=== PATIENT | female | born 1955 | race Caucasian/White ===

== ENCOUNTER 2025-01-11 02:59 | Inpatient (IN) | payer MEDICARE, OTHER, SELFPAY ==
--- NOTE | 2025-01-10 19:53 | EDRN ---
Called for pt, no answer.
[2025-01-10 19:54] VITALS: BP 95/66
[2025-01-10 20:28] LABS: % Basophils 0.8 % (0-2); % Eosinophils 6.3 % (0-6); % Immature Granulocytes 0.7 % (0-0.5); % Lymphocytes 5.1 % (20.5-51.1); % Monocytes 9.6 % (1.7-9.3); % Neutrophils 77.5 % (42.2-75.2); Absolute Basophils 0.1 10^3/uL (0-0.2); Absolute Immature Granulocytes 0.1 10^3/uL (0-0.05); Absolute Lymphocytes 0.8 10^3/uL (1.2-3.4); Absolute Monocytes 1.5 10^3/uL (0.1-0.6); Absolute Neutrophils 12.3 10^3/uL (1.4-6.5); Hematocrit 33.3 % (37.0-47.0); Hemoglobin 11.3 g/dL (12.0-16.0); Mean Corp Hgb Conc. 33.9 g/dL (33.0-37.0); Mean Corpuscular Hgb 26.7 pg (27.0-31.0); Mean Corpuscular Volume 78.5 fL (81.0-99.0); Mean Platelet Volume 11.4 fL (7.4-10.4); Nucleated Red Blood Cells % 0 %; Platelet Count 305 10^3/uL (130-400); Red Blood Cell Count 4.24 10^6/uL (4.20-5.40); Red Cell Dist. Width 13.6 % (11.5-14.5); White Blood Cell Count 15.9 10^3/uL (4.8-10.8)
[2025-01-10 20:46] LABS: ALT (SGPT) 14 U/L (0-35); AST (SGOT) 17 U/L (14-36); Albumin 3.2 g/dl (3.5-5.0); Alkaline Phosphatase 121 U/L (38-126); Blood Urea Nitrogen 16 mg/dl (7-17); Calcium 8.7 mg/dl (8.4-10.2); Carbon Dioxide 27 mmol/L (22-30); Chloride 89 mmol/L (98-107); Glucose 142 mg/dl (70-99); Potassium 4.2 mmol/L (3.5-5.1); Sodium 128 mmol/L (135-145); Total Bilirubin 1.2 mg/dl (0.2-1.3); Total Protein 5.9 g/dl (6.3-8.2); eGFR > 60.00
[2025-01-10 20:52] LABS: COVID-19 Antigen Negative (Negative)
[2025-01-10 22:36] VITALS: BMI 24.0
[2025-01-10 22:38] VITALS: BP 114/74
[2025-01-10 23:12] VITALS: BP 113/75
--- NOTE | 2025-01-10 23:54 | ED.GENMED ---
History of Present Illness
General
Chief Complaint: Fever
Source: patient and family
Exam Limitations: none
Time Seen by Provider: 01/10/25 22:41
History of Present Illness
History of Present Illness:
69-year-old female COPD lung cancer status posttreatment week or 2 a cough congestion fever chills nausea vomiting shortness of breath had a virtual visit with a primary care provider started on Augmentin 5 days ago
Past History
Past History
ED Past Medical History: Cancer and COPD
ED Past Surgical History: None
Social History
Tobacco: Former smoker
Alcohol: None
Drug: None
Living: with family
Employment: Retired
Review of Systems
Review of Systems
All Other Systems: Not applicable
Constitutional: Reports fever and fatigue
EENT: Reports no symptoms
Respiratory: Reports cough and trouble breathing
Cardiac: Reports no symptoms
ABD/GI: Reports no symptoms
Phy Exam
Physical Exam
Physical Exam:
Physical Exam
General: Chronically ill-appearing
Neck: Dry lip
Heart: s1/s2 regular rate and rhythm, no murmur. equal radial pulses.
Lungs: Diminished on the
Abdomen: Not tender
Neuro: alert and oriented. no focal neurological deficits
Skin: no rash
Psychiatric: well kept. interactive and cooperative
Extremities: no edema.
Course
Orders/Labs/Results
Orders:
Orders
01/10/25 20:14
COVID-19 Antigen Urgent
Source: Nasal Swab
Complete Blood Count/With Diff Urgent
Comprehensive Metabolic Panel Urgent
Cortisol, Random Urgent
Comment: ADD ON
Serum Osmolality Urgent
TSH Urgent
Influenza A+B Rapid Molecular Urgent
SHANNA Source: Nasal Swab
Specimen Description:
01/10/25 22:41
Urinalysis Reflex To Culture Urgent
Date Specimen was Collected: 01/11/25
Time Specimen was Collected: 00:58
CR Chest - 2 Views Urgent
Comment:
Reason For Exam: cough fever
01/10/25 23:48
Blood Culture Q30M
SHANNA Source: Blood/Venous
Specimen Description:
0.9% Sodium Chloride 1000 ml [Nss] 1,000 ml IV BOLUS
Ipratropium/Albuterol Sulfate [Duoneb] 3 ml INH R NOW STA
Ondansetron Injectable [Zofran] 4 mg IV NOW STA
01/10/25 23:53
Cefepime HCl [Maxipime] 2,000 mg IV NOW STA
01/11/25 00:30
CT Chest With Iv Contrast Urgent
Reason For Exam: mass vs pna
01/11/25 00:39
Blood Culture Q30M
SHANNA Source: Blood/Venous
Specimen Description:
01/11/25 00:59
Urine Microscopic Reflex Cult Urgent
Urine Culture Urgent
SHANNA Source: U
Specimen Description:
Date Specimen was Collected: 01/11/25
Time Specimen was Collected: 00:58
01/11/25 01:35
Add On- LAB Urgent
Tests Added?: serum osm, cortisol, tsh
01/11/25 02:24
Add On- LAB Urgent
Tests Added?: Urine sodium. Urine osm.
Abnormal Lab Results
01/10/25 01/11/25
20:14 00:59
WBC 15.9 H 10^3/uL
(4.8-10.8)
Hgb 11.3 L g/dL
(12.0-16.0)
Hct 33.3 L %
(37.0-47.0)
MCV 78.5 L fL
(81.0-99.0)
MCH 26.7 L pg
(27.0-31.0)
MPV 11.4 H fL
(7.4-10.4)
Abs Immat Gran (auto) 0.1 H 10^3/uL
(0-0.05)
Absolute Neuts (auto) 12.3 H 10^3/uL
(1.4-6.5)
Absolute Lymphs (auto) 0.8 L 10^3/uL
(1.2-3.4)
Absolute Monos (auto) 1.5 H 10^3/uL
(0.1-0.6)
Absolute Eos (auto) 1.0 H 10^3/uL
(0-0.7)
Immature Gran % 0.7 H %
(0-0.5)
Neutrophils % 77.5 H %
(42.2-75.2)
Lymphocytes % 5.1 L %
(20.5-51.1)
Monocytes % 9.6 H %
(1.7-9.3)
Eosinophils % 6.3 H %
(0-6)
Sodium 128 L mmol/L
(135-145)
Chloride 89 L mmol/L
(98-107)
Creatinine 0.5 L mg/dL
(0.6-1.0)
Glucose 142 H mg/dl
(70-99)
Serum Osmolality 268 L mOsm/kg
(275-300)
Total Protein 5.9 L g/dl
(6.3-8.2)
Albumin 3.2 L g/dl
(3.5-5.0)
Ur Occult Blood Reflex 1+ A
(Negative)
Urine RBC 3-6 A /HPF
(0-2)
Urine Bacteria (Reflex) Moderate A
(Negative)
Urine Albumin (Reflex) 1+ A
(Neg - Trace)
01/10/25 20:14
01/10/25 20:14
Vital Signs
Initial and Last Documented VS:
Initial Vital Signs
Temp Pulse Resp BP Pulse Ox
98.2 F 120 20 95/66 94
01/10/25 19:54 01/10/25 19:54 01/10/25 19:54 01/10/25 19:54 01/10/25 19:54
Last Documented Vital Signs
Temp Pulse Resp BP Pulse Ox
98.2 F 120 20 101/71 97
01/10/25 19:54 01/10/25 19:54 01/10/25 19:54 01/11/25 00:00 01/11/25 02:15
*Radiology
Radiology exam reviewed: preliminary read by ED provider
*Pulse Oximetry
Patient hypoxic: no
*EKG
Interpreted by ED Provider?: Yes
Interpretation: abnormal
Comparison EKG: no comparison EKG present
Heart Rate: 78
Rate: normal
Rhythm: sinus
Ischemia: non-specific ST changes
*Grips Interpretation
Rate: normal
Interpretation: normal
Heart Rate: 78
Rhythm: sinus
*Critical Care Note
Total Time (30-74mins, 75-104mins- exclusive of procedures): 30
Update Note
Update Note:
Update multiple complaints including infectious symptoms chest x-ray abnormal will check CT of the chest to define anatomy mass versus infection obstruction etc.
Reviewed with [facility] large obstructing tumor
ED Attending Note
-
Portions of this chart may have been created with voice recognition software.� Occasional wrong word or��sound alike� substitutions may have occurred due to the inherent limitations of voice recognition software.
Discharge Plan
Departure
Patient Disposition: Admit
Date of Disposition: 01/11/25
Time of Disposition: 01:41
Admit to: Med/Surg
Presentation/result/management discussed w/ accepting MD/DO: Hospitalist
Patient with high blood pressure during this ER visit?: No
Condition: Fair
Discharge Problem:
Lung cancer, Hyponatremia
Prescriptions:
No Action
meloxicam 7.5 MG tablet
7.5 mg PO BID Qty: 14 0RF
Referrals:
Yesika Hart CRNP [Family Provider] -
Interventions
Interventions:
*Risk Screen - Suicide Last Done: 01/10/25 22:36
*General Assessment Last Done: 01/10/25 22:36
*Neglect/Abuse Screening Last Done: 01/10/25 22:36
ED- Fall Risk Assessment Last Done: 01/10/25 22:36
*ED COVID-19 Vaccine History Last Done: 01/10/25 22:36
ED- Neurological Assessment Last Done: 01/10/25 22:36
ED-Skin Assessment Last Done: 01/10/25 22:36
Discharge Date and Time
Print Language: BRITISH
[2025-01-11] VITALS (11 sets, daily range): BP systolic 91–118; BP diastolic 64–74; BMI 22.9
[2025-01-11] MEDS: NSS 1000 IV (00:43)
[2025-01-11] MEDS: ZOFRAN 4 MG IV (00:43)
[2025-01-11] MEDS: MAXIPIME 2000 MG IV (00:46)
[2025-01-11] MEDS: DUONEB 3 ML INH (00:47)
[2025-01-11 01:07] LABS: Urine Albumin 1+ (Neg - Trace); Urine Bilirubin Negative (Negative); Urine Character Clear (Clear); Urine Color Yellow; Urine Glucose Negative (Negative); Urine Ketone Negative (Negative); Urine Leukocyte Negative (Negative); Urine Nitrite Negative (Negative); Urine Occult Blood 1+ (Negative); Urine Urobilinogen 1+ (Neg - 1+)
[2025-01-11 01:27] LABS: Urine Squamous Cell >30 /LPF (Few); Urine Urothelial Cell >30 /LPF (FEW)
[2025-01-11 01:29] LABS: Urine Amorphous Seen
[2025-01-11 01:30] LABS: Urine Bacteria Moderate (Negative)
[2025-01-11 02:15] LABS: Osmolality Serum 268 mOsm/kg (275-300)
--- NOTE | 2025-01-11 02:40 | HPS.HSE ---
Family Physician
-
Family Physician: KIKO Cristina
Chief Complaint
-
Chest pain
History of Present Illness
Patient is a 69y F with PMH significant for anxiety / depression and COPD who presents to ED complaining of chest pain. Patient reports discomfort in the R > L side of her chest that has been increasing. She states that she had similar symptoms
'about 2 weeks ago' at 'that other hospital' (? [facility]) and they treated it and 'it went away'. She notes that she stopped smoking 2 weeks ago. She had recurrent pain and presented to the ED this evening.
She denies any cough, fevers / chills, etc. Pos SOB with activity. No GI or complaints.
Patient seems confused and has difficulty providing detailed history as a result.
She repeatedly replies 'clonopin' to questions regarding medical histories, hospitals and medications.
Medical History
Past Medical History
Past Medical History: Reports Other
Additional Past Medical History:
COPD
Anxiety / Depression
Past Surgical History: Reports Other
Additional Past Surgical History:
Unclear. Patient states 'just little things' but cannot be more specific.
Social History
Tobacco: Smoker (Quit smoking only two weeks ago. > 50 pack years total use.)
Family History
Family History: Not pertinent
Allergies / Home Medications
Allergies reflects when Allergies were last updated in [employer].
Home Medications with original date entered in [employer]
Allergy/Medication List:
Allergies
Allergy/AdvReac Type Severity Reaction Status Date / Time
codeine Allergy Nausea / Verified 01/10/25 20:02
Vomiting
Home Medications
clonazepam 1mg TID (confirmed via PDMP).
Review of Systems
-
History Source: Patient (difficult ROS due to mental status / patient difficulty answering questions.)
A 12 point ROS was completed and negative except as noted: Yes
Constitutional: Denies Fever or Chills
Respiratory: Reports Trouble Breathing; Denies Cough
Cardiac: Reports Chest Pain; Denies Syncope
Abdomen/GI: Denies Abdominal Pain, Nausea, Vomiting or Diarrhea
: Denies Dysuria or Frequency
Musculoskeletal: Denies Joint Pain or Edema
Neurological: Denies Dizzy or Headache
Psych: Denies Depression or Anxiety
Physical Exam
Vital Signs
Vital Signs
Temp Pulse Resp BP Pulse Ox
98.2 F 120 20 101/71 97
01/10/25 19:54 01/10/25 19:54 01/10/25 19:54 01/11/25 00:00 01/11/25 02:15
Physical Exam
General: Other (Frail 69y F in no acute distress. )
HEENT: Other (MMM, missing dentition.)
Respiratory: Other (Absent breath sounds over the R lower lung about 1/2 up. L lung is clear. No wheezing.)
Cardiac: S1/S2 and Tachycardia; No Murmur
GI: Soft, Non Tender, Non Distended and Normal Bowel Sounds
Musculoskeletal: No Clubbing, No Cyanosis and No Edema
Neuro: Awake, Alert and Other (difficulty answering questions. some apparent cognitive impairment.)
Laboratory Results
-
01/10/25 20:14
01/10/25 20:14
Laboratory Results
Total Bilirubin 1.2 mg/dl (0.2-1.3) 01/10/25 20:14
AST 17 U/L (14-36) 01/10/25 20:14
ALT 14 U/L (0-35) 01/10/25 20:14
Alkaline Phosphatase 121 U/L (38-126) 01/10/25 20:14
Impression/Plan
-
A/P: Patient is a 69y F with PMH significant for anxiety and COPD who presents to ED complaining of chest pain.
Large Right Lung Mass
- Admit for further evaluation and treatment.
- Very likely primary pulmonary malignancy.
- Recent history is quite unclear. Patient implies this was noted and 'treated' only two weeks ago.
- Try to obtain outside records, but she is not even sure at which facility she was seen.
- Suspect that her understanding of issues and provided history is not complete.
- Pulmonary evaluation for additional recommendations.
- ? biopsy via IR v FOB.
- ? CT Surgery consult given tumor mass.
- Observe off of abx for now as patient is afebrile, non-toxic appearing, etc.
Hyponatremia
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
- Check urine studies to confirm.
- NPO for now for possible procedure / biopsy.
- Fluid restriction once diet restarted.
COPD without Acute Exacerbation
- Nebs PRN.
- Recently stopped smoking.
Anxiety / Depression
Apparent Cognitive Impairment
- Will continue clonazepam (confirmed via PDMP) to avoid precipitating withdrawal.
- Follow for changes in mental state.
- Try to obtain additional medical history / confirmations from outside sources.
DVT Prophylaxis: Lovenox
Code Status: Full
[2025-01-11 02:51] LABS: Cortisol, Random 28.9 ug/dl; TSH < 0.02 uIU/ml (0.47-4.68)
[2025-01-11 03:35] LABS: Urine Sodium 23 mmol/L (30-90)
[2025-01-11 03:43] LABS: Osmolality Urine 511 mOsm/kg (300-900)
[2025-01-11] MEDS: FLUSH (NSS) 1 FLUSH IV (04:04)
[2025-01-11 06:45] LABS: Hematocrit 29.1 % (37.0-47.0); Hemoglobin 9.8 g/dL (12.0-16.0); Mean Corp Hgb Conc. 33.7 g/dL (33.0-37.0); Mean Corpuscular Hgb 26.8 pg (27.0-31.0); Mean Corpuscular Volume 79.7 fL (81.0-99.0); Mean Platelet Volume 11.8 fL (7.4-10.4); Platelet Count 219 10^3/uL (130-400); Red Blood Cell Count 3.65 10^6/uL (4.20-5.40); Red Cell Dist. Width 13.6 % (11.5-14.5); White Blood Cell Count 12.4 10^3/uL (4.8-10.8)
[2025-01-11 06:56] LABS: Blood Urea Nitrogen 13 mg/dl (7-17); Calcium 8.2 mg/dl (8.4-10.2); Carbon Dioxide 29 mmol/L (22-30); Chloride 94 mmol/L (98-107); Estimated Creatinine Clearance 75 ml/min; Glucose 123 mg/dl (70-99); Potassium 3.8 mmol/L (3.5-5.1); Sodium 129 mmol/L (135-145); eGFR > 60.00
[2025-01-11] MEDS: KLONOPIN 1 MG PO ×3 (08:17→21:50)
--- NOTE | 2025-01-11 09:16 | CON.ONC ---
Impression
Impression
Hx 'stage 3 or 4 lung cancer' treated at [facility] with chemo/XRT [id number]. reports LINDSAY on restaging in Jul. I do not have records to confirm, however, I have placed a call to her primary oncologist for further details.
AMS
hyponatremia
low TSH
anxiety
COPD
Plan
Plan
f/u CT chest
will need OP PET CT for staging
MRI brain
optimize PT, OT, nutrition
Awaiting return call from primary oncologist
Patient History
History of Present Illness
69yo F who is a poor historian presented to ER with chest pain. She reports right chest pain that has been worsening which prompted her to seek ER evaluation. Initial evaluation notable for WBC 15.9, Hgb 11.3, MCV 78.5, platelet count 305,000, Na
128, TSH <0.02, with normal calcium, renal function and LFTs. Her CXR showed a dense opacification in the right lower lateral hemithorax with overall right volume loss and suspected pleural-based mass in the upper posterior chest. CT chest is
pending. Blood and urine cultures are pending. She has been admitted, started on IV abx, antiemetics, and IVF.
Pt is a poor historian and unable to provide any details regarding medical history. I spoke with pt , Fili, who tells me that she has 'stage 3 or 4' lung cancer that was treated at [facility] with chemotherapy and radiation in [id number]. He
tells me that the most recent restaging imaging with [facility] showed no evidence of active disease. I do not have records to confirm this history. I called [facility] to discuss with her primary oncologist. Fili tells me that Filomena has been declining over
the past 2 weeks since she had the flu. She was independent in ADLs prior to 2 weeks ago and now weak, spending more time in bed. He also notes decreased appetite and weight loss.
Clinically, denies fever, chills. She does note a cough and SAMUELS. She takes Tessalon Perles at home for cough per .
Afebrile, no hypoxia or hypotension.
Past-Medical/Surgical History
PMH HLD, GERD
PSH lung bx
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
Family brother with lung cancer (also former smoker)
Patient Medication
�Medication �Instructions �Recorded �Confirmed �Last Taken �Type
albuterol sulfate 90 mcg/actuation 2 puff inhalation R Q6HPRN PRN sob 01/11/25 01/11/25 Unknown History
aerosol inhaler
atorvastatin 10 mg tablet (Lipitor) 10 mg PO DAILY 01/11/25 01/11/25 Unknown History
benzonatate 100 mg capsule 100 mg PO QIDPRN PRN cough 01/11/25 01/11/25 Unknown History
clonazepam 1 mg tablet 1 mg PO BIDPRN PRN anxiety 01/11/25 01/11/25 Unknown History
clonazepam 1 mg tablet 1 mg PO DAILY 01/11/25 01/11/25 Unknown History
doxycycline hyclate 100 mg capsule 100 mg PO BID 01/11/25 01/11/25 Unknown History
famotidine 20 mg tablet (Pepcid) 20 mg PO DAILY 01/11/25 01/11/25 Unknown History
Active Medications
Generic Name Dose Route Start Last Admin
Trade Name Freq PRN Reason Stop Dose Admin
Acetaminophen 650 mg 01/11/25 03:58
Acetaminophen 325 Mg Tablet PO 02/08/25 03:57
Q4HPRN PRN
Mild Pain / Temp > 101
Albuterol Sulfate 2.5 mg 01/11/25 03:58
Albuterol Nebs 2.5 Mg/3 Ml Ampul INH
R Q4HPRN PRN
SOB
Protocol
Clonazepam 1 mg 01/11/25 08:00 01/11/25 08:17
Clonazepam 1 Mg Tablet PO 02/08/25 07:59 1 mg
TID BONNY Administration
Enoxaparin Sodium 40 mg 01/11/25 18:00
Enoxaparin Sodium 40 Mg/0.4 Ml Syringe SC 02/08/25 17:59
QPM BONNY
Sodium Chloride 0 flush 01/11/25 05:00 01/11/25 04:04
Sodium Chloride 0.9% (Flush) Syringe IV 02/08/25 04:59 1 flush
PER PROTOCOL BONNY Administration
Review of Systems
-
Unable to obtain full review of systems at this time due to: Other (confusion)
History Source: Family () and Records
Physical Exam
-
General: Other (matted hair, disheveled appearance)
HEENT: Moist Mucous Membranes; Negative Jaundice
Cardiology: Normal Sinus Rhythm
Pulmonary: Other (diminished right ling)
GI: Soft
Musculoskeletal: Other (DEE)
Extremities: Pulses Present; Negative Edema
Skin: Warm
Psych: Calm
Labs
Lab Results
WBC 12.4 10^3/uL (4.8-10.8) H 01/11/25 05:57
RBC 3.65 10^6/uL (4.20-5.40) L 01/11/25 05:57
Hgb 9.8 g/dL (12.0-16.0) L 01/11/25 05:57
Hct 29.1 % (37.0-47.0) L 01/11/25 05:57
MCV 79.7 fL (81.0-99.0) L 01/11/25 05:57
MCH 26.8 pg (27.0-31.0) L 01/11/25 05:57
MCHC 33.7 g/dL (33.0-37.0) 01/11/25 05:57
RDW 13.6 % (11.5-14.5) 01/11/25 05:57
Plt Count 219 10^3/uL (130-400) D 01/11/25 05:57
MPV 11.8 fL (7.4-10.4) H 01/11/25 05:57
Abs Immat Gran (auto) 0.1 10^3/uL (0-0.05) H 01/10/25 20:14
Absolute Neuts (auto) 12.3 10^3/uL (1.4-6.5) H 01/10/25 20:14
Absolute Lymphs (auto) 0.8 10^3/uL (1.2-3.4) L 01/10/25 20:14
Absolute Monos (auto) 1.5 10^3/uL (0.1-0.6) H 01/10/25 20:14
Absolute Eos (auto) 1.0 10^3/uL (0-0.7) H 01/10/25 20:14
Absolute Basos (auto) 0.1 10^3/uL (0-0.2) 01/10/25 20:14
Immature Gran % 0.7 % (0-0.5) H 01/10/25 20:14
Neutrophils % 77.5 % (42.2-75.2) H 01/10/25 20:14
Lymphocytes % 5.1 % (20.5-51.1) L 01/10/25 20:14
Monocytes % 9.6 % (1.7-9.3) H 01/10/25 20:14
Eosinophils % 6.3 % (0-6) H 01/10/25 20:14
Basophils % 0.8 % (0-2) 01/10/25 20:14
Creatinine 0.5 mg/dL (0.6-1.0) L 01/11/25 05:57
Vital Signs
Vital Signs
Temp Pulse Resp BP Pulse Ox
98.2 F 102 20 113/68 96
01/10/25 19:54 01/11/25 08:10 01/11/25 08:10 01/11/25 08:10 01/11/25 08:10
[2025-01-11 10:47] LABS: Free T4 3.22 ng/dl (0.78-2.19)
--- NOTE | 2025-01-11 13:02 | W.PN.HOSP.TC ---
Today's Communication/Plan
-
Monitor vital signs see plan
Check MRI brain
Monitor sodium
Discussed with family over the phone
Nonbillable note
Assessment / Plan
Assessment / Plan
General: Other (Frail 69y F in no acute distress. )
HEENT: Other (MMM, missing dentition.)
Respiratory: Other (Absent breath sounds over the R lower lung about 1/2 up. L lung is clear. No wheezing.)
Cardiac: S1/S2 and Tachycardia; No Murmur
GI: Soft, Non Tender, Non Distended and Normal Bowel Sounds
Musculoskeletal: No Clubbing, No Cyanosis and No Edema
Neuro: Awake, Alert and Other (difficulty answering questions. some apparent cognitive impairment.)
Large Right Lung Mass
History was taken from and sister, patient has history of stage III or IV lung cancer treated at [facility] with chemo/XRT [id number]. Per , they did see oncologist Dr. Hoang at [facility] in July 2024 and patient was cancer free
CT chest with lung cancer with possible metastatic disease
Now with confusion from past 2 weeks per family, agree with brain MRI
Oncology following; discussing with patient's primary oncologist
Pulmonary consulted
Likely will need more imaging outpatient with primary oncologist
Hyponatremia
Continue to monitor
Soft and bite-size diet since patient does not have dentures, fluid restrict
Recent flu
No respiratory compromise, monitor
COPD without Acute Exacerbation
- Nebs PRN.
- Recently stopped smoking.
Thyroid nodule status post possible FNA
Per heme negative for malignancy
Low TSH with mildly elevated free T4, had recent flu. 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
Anxiety / Depression
Apparent Cognitive Impairment
- Will continue clonazepam (confirmed via PDMP) to avoid precipitating withdrawal.
- Follow for changes in mental state.
- Try to obtain additional medical history / confirmations from outside sources.
DVT Prophylaxis: Lovenox
Code Status: Full
Anticipated Discharge: 24 - 48 hours
Subjective/Interval History
-
Date of Service: January 11, 2025
Denies pain
Objective Data
-
Labs:
Laboratory Results
01/11/25
05:57
WBC 12.4 H
Hgb 9.8 L
Hct 29.1 L
Plt Count 219 D
Sodium 129 L
Potassium 3.8
Chloride 94 L
Carbon Dioxide 29
BUN 13
Creatinine 0.5 L
Glucose 123 H
Calcium 8.2 L
Vital Signs:
Vital Signs
Temp Pulse Resp BP Pulse Ox
98.2 F 102 20 113/68 96
01/10/25 19:54 01/11/25 12:10 01/11/25 12:10 01/11/25 08:10 01/11/25 12:10
[2025-01-11] MEDS: LOVENOX 40 MG SC (17:09)
--- NOTE | 2025-01-11 17:09 | CON.PUL ---
Consultation
Consultation Request
Date/Time Consultation Requested: 01/11/2025
Date/Time Consultation Performed: 01/11/2025
Requesting Provider: Dr. Null
Performing Provider: Dr. Mannie Salazar
Reason for Consultation: Lung mass
Medical History
-
History of Present Illness:
This is a 69-year-old woman with past medical history significant for anxiety/depression, COPD who presented to the emergency room with chest pain. Chest pain was right greater than left and he was worsening. She was seen at [facility] in
the recent past and she was 'treated' and the pain went away.
Patient stopped smoking 2 weeks ago.
Denies any cough, fevers, hemoptysis or purulent sputum production. Does report exertional shortness of breath.
Denies swallowing dysfunction.
Patient unable to provide clear history. Slightly confused
It is noted that this patient has lung cancer being treated at [facility]. Patient does not have details
Past Medical History
Past Medical History: Other (See assessment and plan)
Social History
Tobacco: Smoker (More than 82-[id number] history)
Alcohol: None
Living: With Family
Family History
Family History: Reviewed & Not Pertinent
Allergies / Home Medications
Allergies
Allergy/AdvReac Type Severity Reaction Status Date / Time
codeine Allergy Nausea / Verified 01/10/25 20:02
Vomiting
Home Medications
�Medication �Instructions �Recorded �Confirmed �Last Taken �Type
albuterol sulfate 90 mcg/actuation 2 puff inhalation R Q6HPRN PRN sob 01/11/25 01/11/25 Unknown History
aerosol inhaler
atorvastatin 10 mg tablet (Lipitor) 10 mg PO DAILY 01/11/25 01/11/25 Unknown History
benzonatate 100 mg capsule 100 mg PO QIDPRN PRN cough 01/11/25 01/11/25 Unknown History
clonazepam 1 mg tablet 1 mg PO BIDPRN PRN anxiety 01/11/25 01/11/25 Unknown History
clonazepam 1 mg tablet 1 mg PO DAILY 01/11/25 01/11/25 Unknown History
doxycycline hyclate 100 mg capsule 100 mg PO BID 01/11/25 01/11/25 Unknown History
famotidine 20 mg tablet (Pepcid) 20 mg PO DAILY 01/11/25 01/11/25 Unknown History
Review of Systems
-
History Source: Patient
All other systems: Negative unless noted
Vitals / Labs / Diagnostic Testing
Vital Signs
Temp Pulse Resp BP Pulse Ox
98.2 F 102 20 113/64 95
01/11/25 15:52 01/11/25 15:00 01/11/25 12:10 01/11/25 14:30 01/11/25 15:52
Lab Data
01/11/25 05:57
01/11/25 05:57
Microbiology
01/10/25 20:14 Nasal Swab Influenza Types A & B (XI) - Final
Negative for Influenza A & B, NAAT
Negative results must be combined with clinical observations
and patient history.
Nucleic Acid Amplification test (NAAT)performed on the
[employer] platform.
Diagnostic Testing:
Physical Exam
-
HEENT: Normocephalic
Cardiovascular: S1/S2
Respiratory: Non-Labored Respirations
GI: Soft and Non Distended
Neurology: Awake and Alert
General: Comfortable
Assessment
-
Right Lung mass-no prior imaging to review here.
CT chest reviewed from 01/11/2025: Large right sided/infrahilar mass tending into the right lower lobe likely bronchogenic carcinoma. Small associated pleural effusion likely metastatic. Anterior mediastinal mass with chest wall invasion.
Fracture of the right lateral rib probably pathologic fracture.
Hyponatremia-SIADH
Brain MRI 01/11/2025: No acute intracranial abnormality. Chronic senescent changes.
Recent flu about 2 weeks ago
Leukocytosis likely reactive
Anemia of chronic disease
condition present prior admission:
COPD/emphysema on CAT scan-only on albuterol HFA as needed-no prior PFTs-does not follow-up locally
GERD
Lung cancer stage III or IV treated at [facility] with chemotherapy and radiation [id number]
Anxiety and depression
Smoker
-
Assessment and plan:
Unfortunately, CT scan suggestive of metastatic/recurrent lung carcinoma.
She already follows up at [facility]. Last time seen apparently in July 2024 at that time she was told that there was no evidence of more recurrent cancer.
It is best for her to follow-up with her cancer doctors. Do not think that a percutaneous biopsy at this point will be helpful not knowing her prior imaging or if she really qualifies for any therapies.
-
If biopsy is needed/requested by her oncologist before she leaves the hospital recommend percutaneous biopsy with interventional radiology.
-
COPD/emphysema on CAT scan. Not in exacerbation.
No significant shortness of breath
Agree with as needed nebulizers and albuterol as needed
-
No additional recommendation from the pulmonary perspective.
She would like to follow-up locally we can assist in our office.
Please call with question
--- NOTE | 2025-01-11 20:03 | PTCARENOTE ---
Pt received from ED to [facility]-2. Pt oriented to room and call moser.
[2025-01-12 06:00] VITALS: BMI 22.8
[2025-01-12 06:26] LABS: % Basophils 0.4 % (0-2); % Eosinophils 8.9 % (0-6); % Immature Granulocytes 0.6 % (0-0.5); % Lymphocytes 6.1 % (20.5-51.1); % Monocytes 8.9 % (1.7-9.3); % Neutrophils 75.1 % (42.2-75.2); Absolute Eosinophils 0.9 10^3/uL (0-0.7); Absolute Immature Granulocytes 0.1 10^3/uL (0-0.05); Absolute Lymphocytes 0.7 10^3/uL (1.2-3.4); Absolute Monocytes 0.9 10^3/uL (0.1-0.6); Hematocrit 27.9 % (37.0-47.0); Hemoglobin 9.6 g/dL (12.0-16.0); Mean Corp Hgb Conc. 34.4 g/dL (33.0-37.0); Mean Corpuscular Hgb 27.3 pg (27.0-31.0); Mean Corpuscular Volume 79.3 fL (81.0-99.0); Mean Platelet Volume 11.3 fL (7.4-10.4); Nucleated Red Blood Cells % 0 %; Platelet Count 201 10^3/uL (130-400); Red Blood Cell Count 3.52 10^6/uL (4.20-5.40); Red Cell Dist. Width 13.8 % (11.5-14.5); White Blood Cell Count 10.6 10^3/uL (4.8-10.8)
[2025-01-12 07:20] LABS: ALT (SGPT) 12 U/L (0-35); AST (SGOT) 16 U/L (14-36); Albumin 2.5 g/dl (3.5-5.0); Alkaline Phosphatase 102 U/L (38-126); Blood Urea Nitrogen 12 mg/dl (7-17); Calcium 8.1 mg/dl (8.4-10.2); Carbon Dioxide 25 mmol/L (22-30); Chloride 95 mmol/L (98-107); Estimated Creatinine Clearance 75 ml/min; Glucose 117 mg/dl (70-99); Potassium 3.4 mmol/L (3.5-5.1); Sodium 129 mmol/L (135-145); Total Bilirubin 0.9 mg/dl (0.2-1.3); Total Protein 5.1 g/dl (6.3-8.2); eGFR > 60.00
[2025-01-12 07:30] VITALS: BP 113/76
[2025-01-12] MEDS: KCL 20 MEQ PO (09:04)
[2025-01-12] MEDS: KLONOPIN 1 MG PO (09:04)
--- NOTE | 2025-01-12 12:19 | W.PN.ONC2 ---
Today's Communication / Plan
-
.
Impression
Impression
Hx 'stage 3 or 4 lung cancer' treated at [facility] with chemo/XRT [id number]. reports [facility] on restaging in Jul. I do not have records to confirm, however, I am awaiting return call from primary oncologist for further details. I placed another
call today to discuss case with Dr. Sarabia's team.
CT chest Large right-sided hilar/infrahilar mass RLL, pleural mets, anterior mediastinal mass & R pleural mass w chest wall invasion
Fracture of the right lateral eighth rib, probably a pathologic fracture.
MRI brain no mets
AMS
hyponatremia
low TSH
anxiety
COPD
Plan
Plan
Imaging reviewed with primary oncologist team, [facility] will call to set up apt next week to arrange OP PET CT for staging and discuss next steps in cancer management
optimize PT, OT, nutrition
no further inpatient recommendations, medical oncology will sign off
Subjective/Objective
Subjective
no new complaints
Vital Signs:
Vital Signs
Temp Pulse Resp BP Pulse Ox
99.3 F 101 20 113/76 100
01/12/25 07:30 01/12/25 07:30 01/12/25 07:30 01/12/25 07:30 01/12/25 08:00
Lab Results:
Laboratory Data
WBC 10.6 10^3/uL (4.8-10.8) 01/12/25 05:46
Hgb 9.6 g/dL (12.0-16.0) L 01/12/25 05:46
Plt Count 201 10^3/uL (130-400) 01/12/25 05:46
eGFR > 60.00 01/12/25 05:46
Physical Exam
HEENT: Moist Mucous Membranes; No Jaundice
Cardiology: Normal Sinus Rhythm
GI: Soft
Extremities: Pulses Present
Orders
Orders
Orders From Last 24 Hours
01/11/25 11:25
Brain W/O & With Contrast MR [MR Brain W/o & With Contrast] Routine
--- NOTE | 2025-01-12 13:20 | W.PN.HOSP.TC ---
Addendum entered and electronically signed by Bj Null MD 01/12/25 15:50:
Discussed with oncology. Patient will need outpatient imaging. Or oncology already discussed with patient's oncologist at [facility] and patient will be seeing them early next week. PT/OT evaluated and recommended home health.
Discussed with spouse over the phone.
DC home
Time of discharge 36 minutes
Original Note:
Today's Communication/Plan
-
Monitor vitals
See plan
Oncology to see today
Likely plan for further malignancy workup outpatient
Monitor sodium
Replete potassium
Called spouse, left voicemail
Assessment / Plan
Assessment / Plan
General: Other (Frail 69y F in no acute distress. )
HEENT: Other (MMM, missing dentition.)
Respiratory: Other (Absent breath sounds over the R lower lung about 1/2 up. L lung is clear. No wheezing.)
Cardiac: S1/S2 and Tachycardia; No Murmur
GI: Soft, Non Tender, Non Distended and Normal Bowel Sounds
Musculoskeletal: No Edema
Neuro: Awake, Alert and Other (difficulty answering questions. some apparent cognitive impairment.)
Large Right Lung Mass
History was taken from and sister, patient has history of stage III or IV lung cancer treated at [facility] with chemo/XRT [id number]. Per , they did see oncologist Dr. Hoang at [facility] in July 2024 and patient was cancer free
CT chest with lung cancer with possible metastatic disease
Now with confusion from past 2 weeks per family, MRI brain with no acute changes, no signs of malignancy
Oncology following; discussing with patient's primary oncologist
Pulmonary following. plan for further work up outpatient
Likely will need more imaging outpatient with primary oncologist
Hyponatremia
Continue to monitor
Soft and bite-size diet since patient does not have dentures, fluid restrict
Hypokalemia
Replete
Recent flu
No respiratory compromise, monitor
COPD without Acute Exacerbation
- Nebs PRN.
- Recently stopped smoking.
Thyroid nodule status post possible FNA
Per heme negative for malignancy
Low TSH with mildly elevated free T4, had recent flu. Follow-up with outpatient dietary director
Anxiety / Depression
Apparent Cognitive Impairment
- Will continue clonazepam (confirmed via PDMP) to avoid precipitating withdrawal.
- Follow for changes in mental state.
- Try to obtain additional medical history / confirmations from outside sources.
DVT Prophylaxis: Lovenox
Code Status: Full
Anticipated Discharge: Within 24 hours
Subjective/Interval History
-
Date of Service: January 12, 2025
denies nausea
Objective Data
-
Labs:
Laboratory Results
01/12/25
05:46
WBC 10.6
Hgb 9.6 L
Hct 27.9 L
Plt Count 201
Sodium 129 L
Potassium 3.4 L
Chloride 95 L
Carbon Dioxide 25
BUN 12
Creatinine 0.4 L
Glucose 117 H
Calcium 8.1 L
Total Bilirubin 0.9
AST 16
ALT 12
Alkaline Phosphatase 102
Vital Signs:
Vital Signs
Temp Pulse Resp BP Pulse Ox
99.3 F 101 20 113/76 100
01/12/25 07:30 01/12/25 07:30 01/12/25 07:30 01/12/25 07:30 01/12/25 08:00
I&O
01/11/25 01/12/25 01/13/25
06:59 06:59 06:59
Intake Total 700 / 700
Balance 700 / 700
[2025-01-12 15:00] VITALS: BP 138/68
[2025-01-12 15:44] VITALS: BP 103/87; PULSE 103; O2SAT 95
[2025-01-12 15:45] VITALS: BP 103/87; PULSE 104; O2SAT 96
--- NOTE | 2025-01-12 15:45 | W.DCSUMMARY ---
Discharge Summary
Discharge Data
Date of Admission: 01/11/25
Date of Discharge: 01/12/25
-
Pending Results: No
Hospital Course
69-year-old female with past medical history of lung cancer status post chemo/radiation, thyroid nodule COPD, anxiety/depression came to the hospital with chest pain which was likely thought was secondary to large right lung mass with possible
metastatic disease. Patient was seen by oncology and pulmonary throughout this hospitalization. On admission patient also had mild confusion which was attributed to malignancy and hyponatremia. Our oncology discussed patient's finding with her
outpatient oncologist who agreed to see patient within next week and also will get outpatient PET scan as this likely appears to be recurrence of her malignancy. MRI brain was also done which did not show any signs of acute stroke or malignancy.
Once patient symptoms continue to improve, she was then discharged home with instructions to follow-up very closely with her PCP and oncology outpatient.
Discharge Plan
-
Patient Disposition: Home with Home Care
Discharge Diagnosis/Procedures: Right lung mass with possible metastatic disease
Hyponatremia
Hypokalemia
Diet: As tolerated and Restrict fluids to 48 oz
Activity: As tolerated
Driving Restrictions: As prior to admission
Bathing Restrictions: None
Blood Work: CBC and BMP next week with primary care provider or oncology
Activity Restrictions/Additional Instructions:
Please follow-up with your oncologist at [facility] as soon as possible
Referrals:
Yesika Hart CRNP [Family Provider] - in less than 1 week
Prescriptions:
Continued
doxycycline hyclate 100 mg Capsule
100 mg PO BID
Patient Comments:
start on 01/05/25 for 7 days
atorvastatin [Lipitor] 10 mg Tablet
10 mg PO DAILY
clonazepam 1 mg Tablet
1 mg PO DAILY
clonazepam 1 mg Tablet
1 mg PO BIDPRN PRN (Reason: anxiety)
famotidine [Pepcid] 20 mg Tablet
20 mg PO DAILY
benzonatate 100 mg Capsule
100 mg PO QIDPRN PRN (Reason: cough)
albuterol sulfate 90 mcg/actuation Hfa Aerosol Inhaler
2 puff INHALATION R Q6HPRN PRN (Reason: sob)
Discharge Orders:
Discharge Patient (As Directed); Ordered 01/12/25
Ordered By: Bj Null
Discharge Date and Time
Discharge Date/Time: 01/12/25 16:32
Print Language: [place]
--- NOTE | 2025-01-12 16:00 | CM ---
CM reviewed chart, patient seen bedside with and sister, initial assessment completed. Patient resides with spouse in a two story home, two small steps to enter. Patient denies DME, VN, or SNF history. Patient PCP Yesika Hart, pharmacy
[facility] [place]. Discussed PT recommendation of VN, agreeable to referral to [facility], TT to liaison with referral. IMM reviewed with , signed, placed in chart, patient provided with copy. CM will continue to follow for all discharge planning
needs.
Plan; home with family, VN pending acceptance.
--- NOTE | 2025-01-12 16:15 | PTCARENOTE ---
patient request to wash at home after discharge, RN notified
--- NOTE | 2025-01-12 16:33 | VNURNOTE ---
Patient DC'ed before [facility] liaison could meet with her. [facility] referral placed in [facility].
== END 2025-01-12 16:32 | disposition home health service (06) | DRG 181 ==
LOC: 4 WEST ACU 02:59
PROVIDERS: Emergency Medicine; ADMITTING PHYSICIAN Hospitalist; ATTENDING PHYSICIAN Internal Medicine; EMERGENCY PHYSICIAN Emergency Medicine; FAMILY PHYSICIAN Registered Nurse; OTHER PHYSICIAN Internal Medicine Critical Care Medicine; OTHER PHYSICIAN Internal Medicine Hematology & Oncology
DX: C34.90 Malignant neoplasm of unspecified part of unspecified bronchus or lung (principal); E22.2 Syndrome of inappropriate secretion of antidiuretic hormone; J90 Pleural effusion, not elsewhere classified; F17.210 Nicotine dependence, cigarettes, uncomplicated; F32.A Depression, unspecified; F41.9 Anxiety disorder, unspecified; R41.82 Altered mental status, unspecified; D63.8 Anemia in other chronic diseases classified elsewhere; E04.1 Nontoxic single thyroid nodule; E87.6 Hypokalemia; J43.9 Emphysema, unspecified; Z92.3 Personal history of irradiation; Z11.52 Encounter for screening for COVID-19; Z79.899 Other long term (current) drug therapy; Z92.21 Personal history of antineoplastic chemotherapy
CPT/HCPCS: 70553; 71046; 71260; 80048; 80053; 81003; 81015; 82533; 83930; 83935; 84300; 84439; 84443; 85025; 85027; 87040; 87086; 87502; 87811; 93005; 94640; 96361; 96374; 96375; 97162; 97166; 99291; A9575; Q9967